=== PATIENT | female | born 1980 | race Two or more races ===

== ENCOUNTER 2019-09-08 17:44 | Emergency (ER) | payer SELFPAY ==
[2019-09-08] MEDS ORDERED: ASPIRIN 81 MG TABLET, CHEWABLE PO ONE (19:42)
--- NOTE | 2019-09-08 19:42 | ER Document Report ---
ED Medical Screen (RME) - General Chief Complaint: Arm Pain Stated Complaint: Chest pain Time Seen by Provider: 09/08/19 19:34 Primary Care Provider: AURA VALDES FNP [Primary Care Provider] - Follow up as needed Mode of Arrival: Ambulatory Information source: Patient Notes: 38-year-old female presented to ED for complaint of pain to the left neck shoulder chest back and down the arm. She states she is also had very shortness of breath difficulty laying down due to shortness of breath she has had increased swelling to her hands and feet bilaterally. She states she has not had any injury she has not done anything to cause this pain in her shoulder. She states she went to the primary doctor on 11 August and the doctor put her on muscle relaxers and told her if the pain did not get better or he continued she would have to come to the emergency room for further testing. She states the pain has not gotten better and is gotten much worse in the last 3 4 days. She states she does have a history of high cholesterol did not get started on any medications. They recommended exercise and diet change. Last menstrual cycle started today. Grandmother and uncle both have cardiac history I have greeted and performed a rapid initial assessment of this patient. A comprehensive ED assessment and evaluation of the patient, analysis of test results and completion of medical decision making process will be conducted by an additional ED providers. Physical Exam - Vital signs Vitals: Temp Pulse Resp BP Pulse Ox 98.0 F 78 16 139/86 H 100 09/08/19 18:06 09/08/19 18:06 09/08/19 18:06 09/08/19 18:06 09/08/19 18:06 Course - Vital Signs Vital signs: Temp Pulse Resp BP Pulse Ox 98.0 F 78 16 139/86 H 100 09/08/19 18:06 09/08/19 18:06 09/08/19 18:06 09/08/19 18:06 09/08/19 18:06 Doctor's Discharge - Discharge Referrals: AURA VALDES FNP [Primary Care Provider] - Follow up as needed
[2019-09-08 20:40] LABS: ABSOLUTE EOSINOPHILS # (AUTO) 0.1 10^3/uL (0.0-0.6); ABSOLUTE LYMPHOCYTES (AUTO) 2.9 10^3/uL (0.5-4.7); ABSOLUTE MONOCYTES (AUTO) 0.5 10^3/uL (0.1-1.4); ABSOLUTE NEUT (AUTO) 3.7 10^3/uL (1.7-8.2); BASOPHILS % (AUTO) 0.2 % (0-2); EOSINOPHILS % (AUTO) 1.1 % (0-6); HEMATOCRIT 38.2 % (36.0-47.0); HEMOGLOBIN 12.8 g/dL (12.0-15.5); LYMPHOCYTES % (AUTO) 40.9 % (13-45); MEAN CORPUSCULAR HEMOGLOBIN 30.1 pg (27.0-33.4); MEAN CORPUSCULAR HGB CONC 33.6 g/dL (32.0-36.0); MEAN CORPUSCULAR VOLUME 89 fl (80-97); MONOCYTES % (AUTO) 7.2 % (3-13); PLATELET COUNT 265 10^3/uL (150-450); RED BLOOD COUNT 4.27 10^6/uL (3.72-5.28); RED CELL DISTRIBUTION WIDTH 13.5 % (11.5-14.0); SEGMENTED NEUTROPHILS % (AUTO) 50.6 % (42-78); TOTAL CELLS COUNTED % (AUTO) 100 %; WHITE BLOOD COUNT 7.2 10^3/uL (4.0-10.5)
[2019-09-08 20:50] LABS: APPEARANCE,URINE CLEAR; BILIRUBIN,URINE NEGATIVE (NEGATIVE); COLOR,URINE YELLOW; GLUCOSE, URINE NEGATIVE (NEGATIVE); KETONES,URINE NEGATIVE (NEGATIVE); PROTEIN,URINE 30 mg/dL (NEGATIVE); UROBILINOGEN,URINE NEGATIVE mg/dL (<2.0)
--- NOTE | 2019-09-08 20:57 | RADIOLOGY REPORT (SQ) ---
EXAM DESCRIPTION: XR CHEST 2 VIEWS COMPLETED DATE/TME: 09/08/2019 19:43 CLINICAL HISTORY: 38 years, Female, Chest pain, shortness of breath, pedal edema COMPARISON: None. NUMBER OF VIEWS: 2 TECHNIQUE: PA and lateral LIMITATIONS: None. FINDINGS: Cardiomediastinal silhouette is top normal. The lungs are grossly clear. No effusion. No pneumothorax IMPRESSION: No active intrathoracic disease is identified. copyright 2010 [employer]- All Rights Reserved
[2019-09-08 21:01] LABS: ALBUMIN 4.5 g/dL (3.5-5.0); ALKALINE PHOSPHATASE 70 U/L (38-126); ANION GAP 11 (5-19); ASPARTATE AMINO TRANSFERASE 35 U/L (14-36); BILIRUBIN,DIRECT 0.2 mg/dL (0.0-0.4); BILIRUBIN,TOTAL 0.3 mg/dL (0.2-1.3); BLOOD UREA NITROGEN 10 mg/dL (7-20); CALCIUM 9.3 mg/dL (8.4-10.2); CARBON DIOXIDE 26 mmol/L (22-30); CHLORIDE 102 mmol/L (98-107); GLUCOSE 102 mg/dL (75-110); TOTAL PROTEIN 7.7 g/dL (6.3-8.2)
--- NOTE | 2019-09-09 01:01 | ER Document Report ---
ED General - General Chief Complaint: Chest Pain Stated Complaint: Chest pain Time Seen by Provider: 09/08/19 19:34 Primary Care Provider: AURA VALDES FNP [Primary Care Provider] - Follow up as needed Mode of Arrival: Ambulatory TRAVEL OUTSIDE OF THE [place] IN LAST 30 DAYS: No - HPI Onset: Other - earlier this month Onset/Duration: Gradual Severity: Moderate Pain Level: 2 Context: 38 year old female with complaints of chest pain and left shoulder and neck pain. No fever or chills. Pain rather consistently since early in August. Pain in the back of her neck and head and left shoulder. Also SOB accompanies. She has a known h/o hld and is here with brother who acts as type casting machine operator. No leg pain. No exertional component to the chest pain. Exacerbated by: Denies Relieved by: Denies Similar symptoms previously: Yes - early august - Related Data Allergies/Adverse Reactions: No Known Allergies Allergy (Unverified 09/08/19 19:43) Home Medications: Flexiril Past Medical History - General Information source: Patient - Social History Smoking Status: Unknown if Ever Smoked Family History: Reviewed & Not Pertinent Patient has suicidal ideation: No Patient has homicidal ideation: No Review of Systems - Review of Systems Constitutional: No symptoms reported EENT: No symptoms reported Cardiovascular: See HPI, Chest pain, Dyspnea. denies: Heart racing Respiratory: See HPI, Short of breath. denies: Hurts to breathe Gastrointestinal: No symptoms reported Genitourinary: No symptoms reported Female Genitourinary: No symptoms reported Musculoskeletal: See HPI, Muscle pain, Neck pain. denies: Leg swelling, Ankle swelling Skin: No symptoms reported Hematologic/Lymphatic: No symptoms reported Neurological/Psychological: No symptoms reported Physical Exam - Vital signs Vitals: Temp Pulse Resp BP Pulse Ox 98.0 F 78 16 139/86 H 100 09/08/19 18:06 09/08/19 18:06 09/08/19 18:06 09/08/19 18:06 09/08/19 18:06 Interpretation: Normal - General General appearance: Appears well, Alert - HEENT Head: Normocephalic, Atraumatic Eyes: Normal Pupils: PERRL - Respiratory Respiratory status: No respiratory distress Chest status: Tender. No: Nontender - ttp over sternum wihtout deformity. Breath sounds: Normal Chest palpation: Normal - Cardiovascular Rhythm: Regular Heart sounds: Normal auscultation Murmur: No - Abdominal Inspection: Normal Distension: No distension Bowel sounds: Normal Tenderness: Nontender Organomegaly: No organomegaly - Back Back: Normal, Nontender - Extremities General upper extremity: Normal inspection, Tender, Normal color, Normal ROM, Normal temperature. No: Nontender - left shoulder ttp wihtout deformity General lower extremity: Normal inspection, Nontender, Normal color, Normal ROM, Normal temperature, Normal weight bearing. No: Shyam's sign - Neurological Neuro grossly intact: Yes Cognition: Normal Orientation: AAOx4 [place] Coma Scale Eye Opening: Spontaneous [place] Coma Scale Verbal: Oriented [place] Coma Scale Motor: Obeys Commands [place] Coma Scale Total: 15 Speech: Normal Motor strength normal: LUE, RUE, LLE, RLE Sensory: Normal - Psychological Associated symptoms: Normal affect, Normal mood - Skin Skin Temperature: Warm Skin Moisture: Dry Skin Color: Normal Course - Re-evaluation Re-evalutation: 09/09/19 01:03 MDM 38 year old premenopausal female with chest pain, neck pain and left shoulder pain for about a month. No exertional component to this. This is palpable and reproducible on exam. Pain in neck and left trapezius is present too. This fits the picture of musculoskeltal pain although more serious etiologies - penumothorax, acs, mi, angina, pe, and cholycystitis were considered. She understands follow up instructions. - Vital Signs Vital signs: Temp Pulse Resp BP Pulse Ox 98.4 F 76 18 132/72 H 100 09/09/19 01:43 09/09/19 01:43 09/09/19 01:43 09/09/19 01:43 09/09/19 01:43 - Laboratory Result Diagrams: 09/08/19 20:10 09/08/19 20:10 Laboratory results interpreted by me: 09/08/19 20:10 Urine Protein 30 H Urine Blood LARGE H - Diagnostic Test Radiology reviewed: Reports reviewed - EKG Interpretation by Me EKG shows normal: Sinus rhythm Rate: Normal Rhythm: NSR - NSR Nl [place] [address] elevation or depression my interpretation. Voltage: No: Increased voltage P Waves: No: KODY Discharge - Discharge Clinical Impression: Neck pain Chest pain Qualifiers: Chest pain type: unspecified Qualified Code(s): R07.9 - Chest pain, unspecified Condition: Good Disposition: HOME, SELF-CARE Instructions: Chest Wall Pain ([facility]), Chest Pain of Unclear Cause ([facility]) Additional Instructions: See your doctor or the referral doctor in follow up. Rest. Take your medicine as directed. Please return here for chest pain or shortness of breath. Talk with your doctor about checking your gallbladder by way of an ultrasound as an outpatient. Prescriptions: Sucralfate [Carafate 1 gm Tablet] 1 gm PO QID #40 tablet Ibuprofen [Motrin 600 mg Tablet] 600 mg PO TID #30 tablet Referrals: AURA VALDES FNP [Primary Care Provider] - Follow up as needed
[2019-09-09] MEDS ORDERED: PANTOPRAZOLE SODIUM 40 MG VIAL IV ONE (01:03)
[2019-09-09 02:00] VITALS: BP 132/72
--- NOTE | 2019-09-09 12:54 | EKG REPORT ---
SEVERITY:- BORDERLINE ECG - SINUS RHYTHM INFERIOR Q WAVES, PROBABLY NORMAL VARIATION : Confirmed by: Ebonie Ojeda 09-Sep-2019 12:53:39
== END 2019-09-09 01:55 | disposition home or self-care (01) ==
LOC: ER 17:44
DX: R07.9 Chest pain, unspecified (principal); M54.2 Cervicalgia; M25.512 Pain in left shoulder; M79.10 Myalgia, unspecified site
CPT/HCPCS: 93005; 99284; 96374; 36415; 84703; 85025; 80053; 81001; 84484; 85379; 71046; 93010; C9113